=== PATIENT | male | born 1950 | race Caucasian/White ===

== ENCOUNTER → 2017-09-05 | Outpatient (CLI) | payer MEDICARE ==
[~2017-09-05] MED LIST: ARAVA20 MG PO; CYMBALTA60 MG PO; D3-20002000 UNIT PO; FLECAINIDE ACE100 MG PO; HYDROXYCHLOROQ200 MG PO; IRON TABLETS325 MG PO; LORTAB 7.5/3251 TAB PO; LUTEIN6 MG PO; METOPROLOL SUCC50 M1 PO; OMEPRAZOLE40 MG PO; WARFARIN SOD5 MG PO
[2017-09-05 17:50] LABS: BUN 10 mg/dL (7-18)
[2017-09-05 18:22] LABS: GFR (ESTIMATED) 96 ML/MIN (>60)
== END ==
LOC: RAD 14:03
PROVIDERS: Family Medicine
DX: M54.42 Lumbago with sciatica, left side (principal)

== ENCOUNTER → 2017-09-06 | Outpatient (CLI) | payer MEDICARE ==
--- NOTE | 2017-09-06 11:46 | RADIOLOGY REPORT PS360 ---
MRI-L-SPINE W/WO, MRI-3D RENDERING/MYELOGRAM HISTORY: Left-sided low back pain. Groin and left leg pain with numbness and tingling and weakness in left leg. Prior lumbar surgery LUMBAGO WITH SCIATICA, LEFT SIDE ORDERING PHYSICIAN: Jesse Gudino MD PATIENT AGE: 67 years COMPARISON: None TECHNIQUE: Standard multiplanar multiecho sequences are performed without contrast. 3-D MIP and myelographic images are also rendered and reviewed FINDINGS: There is mild lumbar scoliosis convex right at the L2-L3 level. There is a rather acute scoliosis at this level measuring 22 degrees with prominent osteophyte formation along the left lateral aspect of L2-L3 with buttressing left lateral osteophytes. The spinal cord ends at the T12-L1 level. T11-T12: Mild degenerative disc disease. T12-L1: Mild degenerative disc disease. L1-L2: Severe degenerative disc disease with prominent endplate osteophytes anteriorly with concentric bulging disc and mild right lateral recess and foraminal narrowing. The disc is somewhat eccentric toward the right. L2-L3: Severe degenerative disc disease with dextroscoliosis and bulging disc along with facet and ligamentum flavum hypertrophy. There is bulging disc and inferior left-sided foraminal narrowing and moderate right sided foraminal narrowing. There are type III endplate changes. L3-L4: There is degenerative disc disease with broad-based bulging disc along with a medium to large sized left paracentral disc herniation with superior extrusion causing impingement upon the left L3 nerve root.. There is moderate right-sided foraminal narrowing and severe left-sided foraminal narrowing. In addition, there is a right paracentral disc herniation at this level as well with resultant severe right-sided lateral recess narrowing and right foraminal narrowing. This is impinging upon the right L4 nerve root. Transverse canal stenosis is present at this level. L4-L5: Degenerative disc disease with bulging disc along with facet and ligamentum flavum hypertrophy with moderate bilateral foraminal narrowing. L5-S1: Degenerative disc disease with bulging disc along with facet hypertrophic change with severe bilateral foraminal narrowing. IMPRESSION: 1. Severe spondylosis of the lumbar spine with multilevel degenerative disc disease with bulging disc along with facet and ligamentum hypertrophy and lumbar scoliosis. Please see above for detailed description at each level. 2. Large left paracentral disc herniation at L3-L4 with superior extrusion of the disc. 3. Medium-sized right paracentral disc herniation at L3-L4. 4. Severe bilateral lateral recess and foraminal narrowing at multiple levels as detailed above.
== END ==
LOC: RAD 08:37
DX: M54.5 Low back pain (principal); M54.42 Lumbago with sciatica, left side
CPT/HCPCS: A9576

== ENCOUNTER → 2017-09-16 | Outpatient (CLI) | payer MEDICARE ==
--- NOTE | 2017-09-17 08:14 | RADIOLOGY REPORT PS360 ---
WRIST-3 VIEWS-RT COMPARISON: Left hand 02/15/2016 HISTORY: Right wrist pain TECHNIQUE: AP lateral and oblique views FINDINGS: The distal radius and ulna appear intact. The carpal bones appear intact. There is narrowing and sclerosis of the navicular trapezium articulation. The soft tissues are normal and is normal pronator quadratus fat pad sign is normal finding. IMPRESSION: Minor arthritic change medial aspect of the wrist, no fracture seen
== END ==
LOC: RAD 16:18
DX: M25.531 Pain in right wrist (principal)

== ENCOUNTER → 2017-10-05 | Outpatient (CLI) | payer MEDICARE ==
--- NOTE | 2017-10-05 16:42 | RADIOLOGY REPORT PS360 ---
CT ABD PELVIS W/O CONTRAST CLINICAL INDICATION: RT INGUINAL PAIN ORDERING PHYSICIAN: Jesse Gudino MD PATIENT AGE: 67 years COMPARISON: None TECHNIQUE: Axial images obtained with sagittal and coronal reformats. PROCEDURE: Oral Contrast: Redicat IV Contrast: None . FINDINGS: No acute finding in the lung bases. The liver, gallbladder, spleen, pancreas, and left adrenal gland has an unremarkable appearance. Right adrenal gland is enlarged and hypodense consistent with an adenoma measuring approximately 2.2 x 1.6 cm. There are 2 punctate right renal calculi one in the upper pole and one in the lower pole and 2 mm each. No hydrocephalus or obstructive ureteral calculus. Unremarkable appendix. There is a right inguinal hernia which contains a loop of distal ileum. There is no evidence of small bowel obstruction. Mild amount retained colonic feces in the rectosigmoid region. No evidence of diverticulitis. No intestinal obstruction or free air. There is mild lumbar scoliosis convex right with adjacent disc disease in the lumbar spine and endplate sclerosis at L1, L2, and L3. Small sclerotic foci are present in the pelvis and are nonspecific. IMPRESSION: 1. Right inguinal hernia containing a loop of distal ileum. No evidence of bowel obstruction 2. Nonobstructing punctate right renal calculi 3. Right adrenal adenoma
== END ==
LOC: RAD 07:44
DX: R10.31 Right lower quadrant pain (principal)